=== PATIENT | female | born 1975 | race Caucasian/White ===

== ENCOUNTER 2023-11-02 10:42 | Observation (INO) | payer BC ==
[2023-11-02] VITALS (15 sets, daily range): BP systolic 98–161; BP diastolic 65–102
[~2023-11-02] VITALS: Ht 157.5 cm; Wt 64.6 kg
[2023-11-02 11:25] LABS: BASO% 0.6 % (0-3); EOS% 1.3 % (0-8); HEMATOCRIT 43.1 % (37.0-47.0); HEMOGLOBIN 14.2 g/dl (12.0-16.0); IMMATURE GRANULOCYTES 0.4 % (0.0-5.0); LYMPH% 34.2 % (15-41); MEAN CORPUSCULAR HGB CONC 32.9 g/dL CAL (32.0-36.0); NEUT# 4.07 thou/uL (2.00-7.15); NEUT% 56.5 % (42-76); RED BLOOD COUNT 4.9 mill/uL (4.20-5.60)
[2023-11-02 11:53] LABS: ALBUMIN 4.5 g/dL (3.2-5.0); ALKALINE PHOSPHATASE 57 u/l (38-126); ANION GAP 7 (6-22 (CALC)); BILIRUBIN, TOTAL 0.7 mg/dL (0.02-1.3); BUN 9 mg/dL (7-17); BUN/CREATININE RATIO 13 (12-20 (CALC)); CARBON DIOXIDE 28 mmol/l (22-30); CHLORIDE 108 mmol/l (95-108); CREATININE 0.7 mg/dL (0.5-1.0); GFR FOR AFR.AMER. > 60 ML/MIN (>=60 (CALC)); GFR OTHER RACES > 60 ML/MIN (>=60 (CALC)); POTASSIUM 3.5 mmol/l (3.5-5.1); SGOT/AST 35 u/l (14-36); SODIUM 140 mmol/l (137-146); TOTAL PROTEIN 7.2 g/dL (6.3-8.2)
[2023-11-02] MEDS ORDERED: DILT-XR120 MG PO (12:53)
[2023-11-02] MEDS ORDERED: LISINOPRIL40 MG PO (12:53)
[2023-11-02] MEDS ORDERED: MONTELUKAST SOD10 MG PO (12:54)
[2023-11-02] MEDS ORDERED: HYDROCHLOROT25 MG PO (12:54)
[2023-11-02] MEDS ORDERED: ASPIRINCHW 81MG PO (12:55)
[2023-11-02] MEDS ORDERED: ESTRACE1 MG PO (12:55)
[2023-11-02] MEDS ORDERED: METOPROLOL TART50 MG PO (12:56)
[2023-11-02] MEDS ORDERED: MAGOX 400400 MG PO (12:56)
[2023-11-02] MEDS ORDERED: PROGESTERONE100 MG PO (12:56)
[2023-11-02] MEDS ORDERED: ATORVASTATIN CA10 MG PO (12:57)
[2023-11-02] MEDS ORDERED: DEXILANT30 MG PO (12:57)
[2023-11-02] MEDS ORDERED: LINZESS290 MCG PO (12:58)
[2023-11-02] MEDS ORDERED: TOPAMAX100 MG PO (12:58)
[2023-11-03 00:46] VITALS: BP 97/62
[2023-11-03 03:34] VITALS: BP 97/58
[2023-11-03 05:56] LABS: BASO% 0.5 % (0-3); EOS% 1.3 % (0-8); HEMATOCRIT 41.7 % (37.0-47.0); HEMOGLOBIN 13.7 g/dl (12.0-16.0); IMMATURE GRANULOCYTES 0.1 % (0.0-5.0); MEAN CELL VOLUME 88.5 fL CALC (80.0-100.0); MEAN CORPUSCULAR HGB 29.1 pG CALC (26.0-32.0); MEAN CORPUSCULAR HGB CONC 32.9 g/dL CAL (32.0-36.0); NEUT# 4.1 thou/uL (2.00-7.15); NEUT% 52.1 % (42-76); RED BLOOD COUNT 4.71 mill/uL (4.20-5.60)
[2023-11-03 06:28] LABS: ANION GAP 10 (6-22 (CALC)); BUN 11 mg/dL (7-17); BUN/CREATININE RATIO 15 (12-20 (CALC)); CARBON DIOXIDE 23 mmol/l (22-30); CHLORIDE 111 mmol/l (95-108); CREATININE 0.8 mg/dL (0.5-1.0); GFR FOR AFR.AMER. > 60 ML/MIN (>=60 (CALC)); GFR OTHER RACES > 60 ML/MIN (>=60 (CALC)); MAGNESIUM 2.1 mg/dL (1.6-2.3); POTASSIUM 3.9 mmol/l (3.5-5.1); SODIUM 139 mmol/l (137-146)
[2023-11-03 08:50] VITALS: BP 124/74
[2023-11-03 11:00] VITALS: BP 110/84
[2023-11-03] MEDS ORDERED: ONDANSETRON4 MG PO (16:13)
== END 2023-11-03 16:32 | disposition home or self-care (01) | DRG 313 ==
LOC: ED 10:42 → ED-I 11:25 → ED 11:25 → MS2 13:05
PROVIDERS: Family Medicine; ADMIT Student in an Organized Health Care Education/Training Program; ATTEND Student in an Organized Health Care Education/Training Program
DX: R07.89 Other chest pain (principal); I44.2 Atrioventricular block, complete; I49.3 Ventricular premature depolarization; I10 Essential (primary) hypertension; Z95.0 Presence of cardiac pacemaker
CPT/HCPCS: G0378; J1650